=== PATIENT | female | born 2000 | race African-American/Black ===

== ENCOUNTER 2019-02-02 12:44 | Emergency (ER) | payer OTHER ==
[~2019-02-02] VITALS: Ht 154.9 cm; Wt 47.6 kg
[2019-02-02] MEDS ORDERED: MOBIC7.5 MG PO (13:45)
[2019-02-02 14:32] VITALS: BP 111/63
== END 2019-02-02 14:20 | disposition home or self-care (01) ==
LOC: ER 12:44
DX: S46.911A Strain of unspecified muscle, fascia and tendon at shoulder and upper arm level, right arm, initial encounter (principal); J45.909 Unspecified asthma, uncomplicated; W18.39XA Other fall on same level, initial encounter; Y93.89 Activity, other specified; Y92.89 Other specified places as the place of occurrence of the external cause; Y99.8 Other external cause status